=== PATIENT | male | born 1990 | race Caucasian/White ===

== ENCOUNTER 2018-10-04 03:50 | Emergency (ER) | payer SELFPAY ==
[~2018-10-04] VITALS: Ht 172.7 cm; Wt 77.0 kg
[2018-10-04 05:30] VITALS: BP 125/85
== END 2018-10-04 06:36 | disposition home or self-care (01) ==
LOC: EDBD → ER 03:50
DX: F19.10 Other psychoactive substance abuse, uncomplicated (principal); R41.82 Altered mental status, unspecified; M79.605 Pain in left leg; M79.604 Pain in right leg; M79.642 Pain in left hand; M79.641 Pain in right hand; Z59.0 Homelessness
CPT/HCPCS: 82962; 99284

== ENCOUNTER 2018-10-06 21:39 | Emergency (ER) | payer SELFPAY ==
[~2018-10-06] VITALS: Ht 177.8 cm; Wt 59.0 kg
[2018-10-06] MEDS ORDERED: SODIUM CHLORIDE 0.9% 1,000 ML IV ONE (22:51)
[2018-10-06] MEDS ORDERED: LORAZEPAM 2MG/ML CPJ IV ONE (23:00)
[2018-10-06 23:27] LABS: CLARITY URINE CLEAR (CLEAR); COLOR URINE YELLOW (YELLOW); KETONES URINE TRACE (NEGATIVE); LEUKOCYTE ESTERASE URINE NEGATIVE (NEGATIVE); NITRITE URINE NEGATIVE (NEGATIVE); OCCULT BLOOD URINE NEGATIVE (NEGATIVE); PROTEIN URINE NEGATIVE (NEGATIVE); SPECIFIC GRAVITY URINE 1.022 (1.005-1.030)
[2018-10-06 23:46] LABS: *AMPHETAMINES SCREEN URINE PRESUMTIVE POSITIVE (NEGATIVE); *BARBITURATES SCREEN URINE NEGATIVE (NEGATIVE); *BENZODIAZEPINES SCREEN URINE NEGATIVE (NEGATIVE); *COCAINE SCREEN URINE NEGATIVE (NEGATIVE); CANNABINOID URINE SCREEN PRESUMTIVE POSITIVE (NEGATIVE); METHADONE URINE SCREEN NEGATIVE (NEGATIVE); OPIATES URINE SCREEN PRESUMTIVE POSITIVE (NEGATIVE); PHENCYCLIDINE URINE SCREEN NEGATIVE (NEGATIVE)
[2018-10-07 10:15] VITALS: BP 108/55
== END 2018-10-07 10:10 | disposition left against medical advice (07) ==
LOC: ER 22:21
DX: F15.10 Other stimulant abuse, uncomplicated (principal); F11.10 Opioid abuse, uncomplicated; R41.82 Altered mental status, unspecified; F17.210 Nicotine dependence, cigarettes, uncomplicated; Z59.0 Homelessness
CPT/HCPCS: 80305; 81003; 93005; 99284; J7030

== ENCOUNTER 2018-10-07 16:02 | Emergency (ER) | payer SELFPAY ==
[~2018-10-07] VITALS: Ht 167.6 cm; Wt 64.0 kg
[2018-10-07 16:55] VITALS: BP 125/78
== END 2018-10-07 19:14 | disposition left against medical advice (07) ==
LOC: ER 16:02
DX: Z53.21 Procedure and treatment not carried out due to patient leaving prior to being seen by health care provider (principal)

== ENCOUNTER 2018-10-07 23:44 | Emergency (ER) | payer SELFPAY ==
[~2018-10-07] VITALS: Ht 175.3 cm; Wt 59.0 kg
[2018-10-08] MEDS ORDERED: ONDANSETRON HCL 4MG/2ML INJ IV STA (00:31)
[2018-10-08 01:58] LABS: CLARITY URINE CLEAR (CLEAR); COLOR URINE AMBER (YELLOW); KETONES URINE TRACE (NEGATIVE); LEUKOCYTE ESTERASE URINE NEGATIVE (NEGATIVE); NITRITE URINE NEGATIVE (NEGATIVE); OCCULT BLOOD URINE NEGATIVE (NEGATIVE); PROTEIN URINE TRACE (NEGATIVE); SPECIFIC GRAVITY URINE 1.039 (1.005-1.030)
[2018-10-08 02:03] LABS: BASOPHILS % 0.6 % (0.0-2.0); EOSINOPHILS % 5.4 % (0.0-5.0); HEMATOCRIT. 40.8 % (42.0-52.0); HEMOGLOBIN. 14.3 g/dL (14.0-18.0); LYMPHOCYTES % 40.4 % (20.0-50.0); MEAN CORPUSCULAR HEMOGLOBIN 28.5 pg (28.0-32.0); MEAN CORPUSCULAR VOLUME 81.4 fL (80.0-94.0); MEAN PLATELET VOLUME 7.5 fl (7.4-10.4); MONOCYTES % 5.7 % (2.0-8.0); NEUTROPHILS % 47.9 % (40.0-76.0); PLATELET 304 x1000/uL (130-400); RED BLOOD CELL COUNT 5.01 mill/uL (4.7-6.1); RED CELL DISTRIBUTION WIDTH 15.7 % (11.6-14.6)
[2018-10-08 02:09] LABS: CHLORIDE 113 mEq/L (98-107)
[2018-10-08 02:13] LABS: ETHANOL BLOOD < 10 mg/dL
[2018-10-08 02:28] LABS: CANNABINOID URINE SCREEN PRESUMTIVE POSITIVE (NEGATIVE); METHADONE URINE SCREEN NEGATIVE (NEGATIVE); OPIATES URINE SCREEN NEGATIVE (NEGATIVE); PHENCYCLIDINE URINE SCREEN NEGATIVE (NEGATIVE)
[2018-10-08 02:29] LABS: *AMPHETAMINES SCREEN URINE PRESUMTIVE POSITIVE (NEGATIVE); *BARBITURATES SCREEN URINE NEGATIVE (NEGATIVE); *BENZODIAZEPINES SCREEN URINE NEGATIVE (NEGATIVE); *COCAINE SCREEN URINE NEGATIVE (NEGATIVE)
[2018-10-08 09:00] VITALS: BP 113/75
== END 2018-10-08 15:33 | disposition home or self-care (01) ==
LOC: ER 23:44
DX: R40.0 Somnolence (principal); F19.10 Other psychoactive substance abuse, uncomplicated; F10.20 Alcohol dependence, uncomplicated; Z79.899 Other long term (current) drug therapy; Z59.0 Homelessness; Y90.0 Blood alcohol level of less than 20 mg/100 ml
CPT/HCPCS: 36415; 70450; 80053; 80305; 80307; 80320; 80329; 81003; 84484; 85025; 93005; 96374; 99284; J2405; Z7610; G0480

== ENCOUNTER 2018-10-08 22:57 | Emergency (ER) | payer SELFPAY ==
[~2018-10-08] VITALS: Ht 180.3 cm; Wt 82.0 kg
[2018-10-09 01:37] LABS: BASOPHILS % 0.8 % (0.0-2.0); EOSINOPHILS % 7.1 % (0.0-5.0); HEMATOCRIT. 41.4 % (42.0-52.0); LYMPHOCYTES % 39.6 % (20.0-50.0); MEAN CORPUSCULAR VOLUME 82.7 fL (80.0-94.0); MEAN PLATELET VOLUME 8.1 fl (7.4-10.4); MONOCYTES % 4.9 % (2.0-8.0); NEUTROPHILS % 47.6 % (40.0-76.0); PLATELET 331 x1000/uL (130-400); RED CELL DISTRIBUTION WIDTH 15.9 % (11.6-14.6)
[2018-10-09 01:43] LABS: CHLORIDE 112 mEq/L (98-107)
[2018-10-09 01:48] LABS: ETHANOL BLOOD 112 mg/dL
[2018-10-09 04:00] VITALS: BP 101/42
== END 2018-10-09 05:58 | disposition left against medical advice (07) ==
LOC: ER 22:57
DX: R45.1 Restlessness and agitation (principal)
CPT/HCPCS: 36415; 80053; 80307; 80320; 80329; 84443; 85025; 99283; Z7610; G0480